=== PATIENT | female | born 1945 | race Caucasian/White ===

== ENCOUNTER → 2016-09-07 | Day surgery (SDC) | payer OTHER, MEDICARE ==
[2016-08-28 14:36] VITALS: BMI 26.0
[~2016-09-07] VITALS: Ht 165.1 cm; Wt 72.7 kg
[~2016-09-07] MED LIST: ASPI325T45 PO; ESZO1TAB16 PO; GABA-112 PO; LEVO100T7 PO; LIDOCAINE HCL 2% 2 ML VIAL (20MG/ML) ONE; MIDAZOLAM HCL 1 MG/ML 2ML VIAL ONE; MULT-506 PO; OMEGA RED PO; ONDANSETRON INJ 2 MG/ML 2 ML VIAL ONE; PROBCAP PO; PROPOFOL IV EMULSION 10 MG/ML 20 ML VIAL IV ONE; SENNTAB23 PO; SODIUM CHLORIDE 0.9% 500ML 500 ML IV ONE
--- NOTE | 2016-09-07 08:56 | Endo History and Physical ---
History & Physical Date of Service: Sep 07, 2016. Chief Complaint: Screening Referring Physician: Kris Ugarte History of Present Illness 71 yo CF who presents for screening colonoscopy. Past Medical History Thyroid Disease Past Surgical History Hx Cardiac Surgery: No Hx Internal Defibrillator: No Hx Pacemaker: No Hx Abdominal Surgery: Yes (UTERINE BIOPSY (BENIGN), D&C, UTERINE SUSPENSION) Hx of Implantable Prosthesis: No Hx Post-Op Nausea and Vomiting: No Hx Cancer Surgery: No Hx Thoracic Surgery: No Hx Orthopedic: Yes (BACK, HIP, AND SHOULDER INJECTIONS, LT KNEE BONE GRAFT) Hx Urinary Tract Surgery: No Family History None Social History Smoking Status: Former Smoker Hx Substance Use: No Hx Alcohol Use: No Allergies Coded Allergies: Adhesives (Verified Allergy, Unknown, SKIN TEARS, 08/28/16) Prednisone (Unverified Allergy, Unknown, DELIRIUM, 08/28/16) [place] (Verified Allergy, Unknown, HIVES, 08/28/16) Current Medications Reported Home Medications Medications Dose Route/Sig Max Daily Dose Days Date Category Multivitamin (Multivitamins) Tab 1 Tab PO QAM 08/28/16 Reported Stool Softener (Sennosides-Docusate Sodium) 1 Tab Tab 1 Tab PO QAM 08/28/16 Reported X-IO (Probiotic Product) 1 Cap Cap 1 Tab PO QAM 08/28/16 Reported [[place] Red] 1 Tab PO QAM 08/28/16 Reported Levothyroxine Sodium 100 Mcg Tab 1 Tab PO QAM 08/28/16 Reported Lunesta (Eszopiclone) 3 Mg Tab 3 Mg PO HS 07/14/15 Reported Aspirin 325 Mg Tab 325 Mg PO QAM 07/14/15 Reported Neurontin (Gabapentin) 100 Mg Cap 2 Tabs PO BID 07/14/15 Reported Vital Signs Weight (Kilograms): 72.73 Height (Feet): 5 Height (Inches): 5 Physical Exam General Appearance: WD/WN, no apparent distress Respiratory/Chest: Auscultation: breath sounds normal Cardiovascular: Heart Auscultation: RRR Abdomen: Bowel Sounds: normal Inspection & Palpation: soft, non-distended, no tenderness, guarding & rebound Assessment and Plan Assessment: 71 yo CF who presents for screening colonoscopy. Plan: Proceed with colonoscopy.
[2016-09-07 08:57] VITALS: Ht 165.1 cm; Wt 72.7 kg
--- NOTE | 2016-09-07 10:22 | Discharge Instructions ---
Endoscopy Patient Instructions Date / Procedure(s) Performed Sep 07, 2016. Colonoscopy Allergy Information Coded Allergies: Adhesives (Verified Allergy, Unknown, SKIN TEARS, 08/28/16) Prednisone (Verified Allergy, Unknown, DELIRIUM, 09/07/16) [place] (Verified Allergy, Unknown, HIVES, 08/28/16) Discharge Date / Findings Sep 07, 2016. Colon polyp Internal hemorrhoids Medication Instructions OK to resume all medications today as prescribed. Reported Home Medications Medications Dose Route/Sig Max Daily Dose Days Date Category Multivitamin (Multivitamins) Tab 1 Tab PO QAM 08/28/16 Reported Stool Softener (Sennosides-Docusate Sodium) 1 Tab Tab 1 Tab PO QAM 08/28/16 Reported Nginx (Probiotic Product) 1 Cap Cap 1 Tab PO QAM 08/28/16 Reported [[place] Red] 1 Tab PO QAM 08/28/16 Reported Levothyroxine Sodium 100 Mcg Tab 1 Tab PO QAM 08/28/16 Reported Lunesta (Eszopiclone) 3 Mg Tab 3 Mg PO HS 07/14/15 Reported Aspirin 325 Mg Tab 325 Mg PO QAM 07/14/15 Reported Neurontin (Gabapentin) 100 Mg Cap 2 Tabs PO BID 07/14/15 Reported Provider Instructions Activity Restrictions - No exercising or heavy lifting for 24 hours. - Do not drink alcohol the day of the procedure. - Do not drive a car or operate machinery until the day after the procedure. - Do not make any important decisions or sign important papers in 24 hours after the procedure. Following Day: - Return to full activity which may include returning to work/school. Diet Start your diet with liquids and light foods (jello, soup, juice, toast). Then eat your usual diet if not nauseated. Treatment For Common After Affects For mild abdominal pain, bloating, or excessive gas: - Rest - Eat lightly - Lie on right side Follow-Up Information Follow-up with DR. MONSTER PEACOCK as scheduled Anesthesia Information What You Should Know You have had a procedure that required some medicine to reduce anxiety and discomfort. This treatment is called moderate sedation. After receiving the treatment, you may be sleepy, but you will be able to breathe on your own. The effects of the treatment may last for several hours. Follow these instructions along with Activity/Diet recommendations noted above: * Do NOT do anything where dizziness or clumsiness would be dangerous. * Rest quietly at home today, then you can be up and about tomorrow. * Have a responsible person stay with you the rest of today. * You may have had an I.V. today. If so, you may take the dressing off later today. Recommendations Call your doctor if: * Trouble breathing * Continuous vomiting for more than 24 hours * Temperature above 101 degrees * Severe abdominal pain or bloating * Pain not relieved by pain medicine ordered * There is increased drainage or redness from any incision * A large amount of rectal bleeding greater than 2-3 tablespoons. (If you had a polyp/s removed or have hemorrhoids, a small amount of blood - from the rectum is to be expected.) * You have any unanswered questions or concerns. IN THE EVENT OF A SERIOUS EMERGENCY, GO TO THE NEAREST EMERGENCY ROOM Your discharge instructions were prepared by provider Spencer Cazares. Patient Instructions Signature Page Janet Tobar Patient (or Guardian) Signature/Date: I have read and understand the instructions given to me by my caregivers. Caregiver/RN/Doctor Signature/Date: The above-named patient and/or guardian has received patient instructions on this date. + Original Patient Signature Page (only) stays with chart. Please make copy for patient.
--- NOTE | 2016-09-07 10:28 | GI REPORT ---
Procedure Date: 09/07/2016 9:48 AM Procedure: Colonoscopy Indications: Screening for colorectal malignant neoplasm Medicines: Monitored Anesthesia Care Complications: No immediate complications. Estimated Blood Loss: Estimated blood loss: none. Procedure: Pre-Anesthesia Assessment: - Prior to the procedure, a History and Physical was performed, and patient medications and allergies were reviewed. The patient's tolerance of previous anesthesia was also reviewed. The risks and benefits of the procedure and the sedation options and risks were discussed with the patient. All questions were answered, and informed consent was obtained. Prior Anticoagulants: The patient has taken no previous anticoagulant or antiplatelet agents. ASA Grade Assessment: II - A patient with mild systemic disease. After reviewing the risks and benefits, the patient was deemed in satisfactory condition to undergo the procedure. After I obtained informed consent, the scope was passed under direct vision. Throughout the procedure, the patient's blood pressure, pulse, and oxygen saturations were monitored continuously. The On-site loaner was introduced through the anus and advanced to the terminal ileum. The colonoscopy was performed without difficulty. The patient tolerated the procedure well. The quality of the bowel preparation was good. The terminal ileum, ileocecal valve, appendiceal orifice, and rectum were photographed. Findings: A 4 mm polyp was found in the ascending colon. The polyp was sessile. The polyp was removed with a cold snare. Resection and retrieval were complete. Non-bleeding internal hemorrhoids were found during retroflexion. The hemorrhoids were small. Impression: - One 4 mm polyp in the ascending colon, removed with a cold snare. Resected and retrieved. - Non-bleeding internal hemorrhoids. Recommendation: - Resume previous diet. - Continue present medications. - Repeat colonoscopy for surveillance based on pathology results. - Return to primary care physician as previously scheduled. Spencer Cazares DO 09/07/2016 10:27:59 AM This report has been signed electronically. Note Initiated On: 09/07/2016 9:48 AM I attest to the content of the Intraoperative Record and orders documented therein, exceptions below
[2016-09-07 10:42] VITALS: BP 130/61; PULSE 98; O2SAT 97
--- NOTE | 2016-09-07 10:42 | Anesthesiology Progress Note ---
Anesthesia Post Op Note Date & Time Sep 07, 2016 at 10:42 Vital Signs Pain Intensity: 0 Vital Signs Past 12 Hours Date Time Temp Pulse Resp B/P Pulse Ox O2 Delivery O2 Flow Rate FiO2 09/07/16 10:26 77 16 155/68 99 Room Air 09/07/16 10:11 77 16 111/53 99 Room Air 09/07/16 09:08 36.4 77 20 138/59 99 Room Air Notes Mental Status: alert / awake / arousable, participated in evaluation Pt Amnestic to Procedure: Yes Nausea / Vomiting: adequately controlled Pain: adequately controlled Airway Patency, RR, SpO2: stable & adequate BP & HR: stable & adequate Hydration State: stable & adequate Anesthetic Complications: no major complications apparent
== END | disposition home or self-care (01) ==
LOC: C.GI 08:36
PROVIDERS: ATTEND Internal Medicine
DX: Z12.11 Encounter for screening for malignant neoplasm of colon (principal); D12.2 Benign neoplasm of ascending colon; K64.8 Other hemorrhoids; M19.90 Unspecified osteoarthritis, unspecified site; Z98.890 Other specified postprocedural states; Z87.891 Personal history of nicotine dependence; Z91.018 Allergy to other foods; Z68.26 Body mass index [BMI] 26.0-26.9, adult

== ENCOUNTER → 2016-11-07 | Outpatient (CLI) | payer OTHER, MEDICARE ==
[~2016-11-07] MED LIST changes: -LIDOCAINE HCL 2% 2 ML VIAL (20MG/ML) ONE; -MIDAZOLAM HCL 1 MG/ML 2ML VIAL ONE; -ONDANSETRON INJ 2 MG/ML 2 ML VIAL ONE; -PROPOFOL IV EMULSION 10 MG/ML 20 ML VIAL IV ONE; -SODIUM CHLORIDE 0.9% 500ML 500 ML IV ONE
[2016-11-07 11:20] LABS: ESTIMATED AVERAGE GLUCOSE 128 mg/dl; HA1C FLAG Normal (Normal)
[2016-11-07 11:25] LABS: ALT/SGPT 19 U/L (12-78); AST/SGOT 9 U/L (15-37); BLOOD UREA NITROGEN 15 mg/dl (7-18); BUN/CREATININE RATIO 14.9 (10-20); CALCIUM 9.4 mg/dl (8.5-10.1); CARBON DIOXIDE 30 mmol/L (21-32); CHLORIDE 105 mmol/L (98-107); GLUCOSE 113 mg/dl (70-99); SODIUM 142 mmol/L (136-145)
[2016-11-07 11:37] LABS: ALB/GLOB RATIO 1.1 (0.9-2); ALKALINE PHOSPHATASE 52 U/L (45-117); THYROID STIMULATING HORMONE 0.267 uIu/ml (0.300-4.500)
--- NOTE | 2016-11-14 12:11 | CODING QUERY MEDICAL NECESSITY ---
CQSUPPORTING DIAGNOSIS NEEDED A supporting diagnosis is required for the test/procedure performed on this patient in order for us to be reimbursed by the patient's insurance. Please provide a supporting diagnosis for the following test/procedure listed below next to the test name along with your signature. *If there is no additional diagnosis for this patient that would support the following test/procedure please document that below next to the test/procedure. Test(s)/Procedure(s) that require a supporting diagnosis: DOS 11/07/16 GLYCATED HEMOGLOBIN Provider Signature: Date: Thank you Diana Bender [employer] Once completed, please kindly fax back to [phone] For questions please call [phone]
== END | disposition home or self-care (01) ==
LOC: C.LABBC 08:00
PROVIDERS: ATTEND Family Medicine
DX: Z11.59 Encounter for screening for other viral diseases (principal); R73.03 Prediabetes; E03.9 Hypothyroidism, unspecified

== ENCOUNTER → 2016-11-12 | Outpatient (CLI) | payer OTHER, MEDICARE ==
--- NOTE | 2016-11-12 16:17 | DIAGNOSTIC IMAGING REPORT ---
LEFT SHOULDER MRI HISTORY: M25.512 Left shoulder pain TECHNIQUE: Multiplanar multisequence MRI of the left shoulder was performed without contrast. COMPARISON STUDY: None. FINDINGS: AC joint: Mild AC joint arthropathy demonstrated by joint space narrowing and a small amount of joint fluid. Rotator cuff: The subscapularis and teres minor tendons are intact. High-grade bursal surface tear involving the distal supraspinatus tendon. There is also a linear full-thickness tear involving the posterior fibers of the infraspinatus tendon. This measures 3 mm in thickness and is seen along the length of the infraspinatus tendon. There is also small partial tears along the undersurface of the infraspinatus tendon. Trace fluid within the subacromial/subdeltoid bursa. Mild fatty atrophy of the supraspinatus and infraspinatus muscles. No associated retraction. Labrum: Truncated appearance to the majority of the labrum consistent with circumferential degeneration/tear. Biceps tendon: Intact Bones: No fracture or dislocation. Cartilage: Less than 50% cartilage thinning within the glenoid and superior humeral head. Miscellaneous: No significant joint effusion. IMPRESSION: 1. Linear focal full-thickness tear within the infraspinatus tendon measuring 3 mm in thickness. There also partial tears within the remaining infraspinatus and supraspinatus tendons. 2. Mild biceps tendinopathy. 3. 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 4. Truncated appearance to the majority of the labrum consistent with circumferential degeneration/tear. Electronically signed by: Pan Dasilva M.D. 11/12/2016 4:15 PM Dictated Date/Time: 11/12/2016 4:03 PM
== END | disposition home or self-care (01) ==
LOC: C.MRI 13:48
PROVIDERS: ATTEND Family Medicine
DX: M75.102 Unspecified rotator cuff tear or rupture of left shoulder, not specified as traumatic (principal)

== ENCOUNTER → 2016-11-24 | Outpatient (CLI) | payer OTHER, MEDICARE | END | disposition home or self-care (01) | LOC: C.CPL 08:29 | PROVIDERS: ATTEND Internal Medicine Nephrology | DX: M75.112 Incomplete rotator cuff tear or rupture of left shoulder, not specified as traumatic (principal) ==

== ENCOUNTER → 2016-12-10 | Outpatient (CLI) | payer OTHER, MEDICARE | END | disposition home or self-care (01) | LOC: C.LABBC 11:19 | PROVIDERS: ATTEND Family Medicine | DX: E03.9 Hypothyroidism, unspecified (principal) ==

== ENCOUNTER → 2017-02-01 | Outpatient (CLI) | payer OTHER, MEDICARE ==
[2017-02-01 11:12] LABS: THYROID STIMULATING HORMONE 12.5 uIu/ml (0.300-4.500)
== END | disposition home or self-care (01) ==
LOC: C.LABBC 08:54
PROVIDERS: ATTEND Physician Assistant Medical
DX: E03.9 Hypothyroidism, unspecified (principal)

== ENCOUNTER → 2017-03-27 | Outpatient (CLI) | payer OTHER, MEDICARE ==
[2017-03-27 14:09] LABS: ESTIMATED AVERAGE GLUCOSE 137 mg/dl; HA1C FLAG Normal (Normal)
[2017-03-27 14:52] LABS: THYROID STIMULATING HORMONE 7.29 uIu/ml (0.300-4.500)
--- NOTE | 2017-04-05 10:40 | CODING QUERY NO DIAGNOSIS ---
TREATMENT RENDERED WITHOUT A DIAGNOSIS : 1945 To promote full compliance with coding requirements relating to patient care, physician participation is requested in all cases of import export clerk uncertainty. Please assist us with providing a diagnosis/symptom for the test(s) below: A diagnosis/symptom was not documented on your Order. A valid diagnosis/symptom is required to bill all insurances. Please remember that we are unable to code a diagnosis of rule out, probable, possible, questionable, or suspected. Tests that require a diagnosis: DOS: 03/27/17 * HEMOGLOBIN A1C DIAGNOSIS: * T3 FREE DIAGNOSIS: * T4 FREE DIAGNOSIS: * THYROID STIMULATING DIAGNOSIS: Provider Signature: Date: Thank you Colette Belcher Health Information Management Once completed, please kindly fax back to [phone] For questions please call [phone]
== END | disposition home or self-care (01) ==
LOC: C.LABBC 09:35
PROVIDERS: ATTEND Physician Assistant
DX: R73.03 Prediabetes (principal); E03.9 Hypothyroidism, unspecified

== ENCOUNTER → 2017-08-16 | Outpatient (CLI) | payer OTHER, MEDICARE ==
[2017-08-16 11:17] LABS: ALBUMIN 3.8 gm/dl (3.4-5.0); ALT/SGPT 18 U/L (12-78); AST/SGOT 10 U/L (15-37); BLOOD UREA NITROGEN 15 mg/dl (7-18); CALCIUM 9.5 mg/dl (8.5-10.1); CARBON DIOXIDE 29 mmol/L (21-32); CHOLESTEROL 273 mg/dl (0-200); CREATININE 0.95 mg/dl (0.60-1.20); GLUCOSE 104 mg/dl (70-99); SODIUM 140 mmol/L (136-145)
[2017-08-16 11:27] LABS: ALKALINE PHOSPHATASE 50 U/L (45-117); LDL CHOLESTEROL CALCULATED 187 mg/dl; TOTAL PROTEIN 7.6 gm/dl (6.4-8.2)
[2017-08-16 11:29] LABS: HEMOGLOBIN A1C 6.2 % (4.5-5.6)
== END | disposition home or self-care (01) ==
LOC: C.LABBC 08:50
PROVIDERS: ATTEND Nurse Practitioner Adult Health
DX: E78.00 Pure hypercholesterolemia, unspecified (principal); E03.9 Hypothyroidism, unspecified; R73.03 Prediabetes

== ENCOUNTER → 2017-09-30 | Outpatient (CLI) | payer OTHER, MEDICARE ==
--- NOTE | 2017-10-01 15:16 | MAMMOGRAPHY REPORT ---
BILATERAL DIGITAL SCREENING MAMMOGRAM TOMOSYNTHESIS WITH CAD: 09/30/2017 CLINICAL HISTORY: Routine screening. Patient has no complaints. TECHNIQUE: Breast tomosynthesis in addition to standard 2D mammography was performed. Current study was also evaluated with a Computer Aided Detection (CAD) system. COMPARISON: Comparison is made to exams dated: 02/23/2016 mammogram - [facility], 1 08/05/2006, 11/24/2012 mammogram, and 08/02/2001 mammogram - [facility]. BREAST COMPOSITION: There are scattered areas of fibroglandular density in both breasts. FINDINGS: No suspicious mass, architectural distortion or cluster of suspicious microcalcifications is seen. There are a few benign rounded rim calcifications scattered in the breasts. IMPRESSION: ACR BI-RADS CATEGORY 1: NEGATIVE There is no mammographic evidence of malignancy. A 1 year screening mammogram is recommended. The pa tient will receive written notification of the results. Approximately 10% of breast cancers are not detected with mammography. A negative mammographic report should not delay biopsy if a clinically suggestive mass is present. Tierra Ortez M.D. ay/:09/30/2017 15:40:22 Food Clerk: Traci Gallagher, [facility] letter sent: Normal 1/2 BI-RADS Code: ACR BI-RADS Category 1: Negative
== END | disposition home or self-care (01) ==
LOC: C.MAMM 10:34
PROVIDERS: ATTEND Nurse Practitioner Adult Health
DX: Z12.31 Encounter for screening mammogram for malignant neoplasm of breast (principal)

== ENCOUNTER → 2017-11-19 | Outpatient (CLI) | payer OTHER, MEDICARE ==
[~2017-11-19] MED LIST changes: -ASPI325T45 PO; +ASPI81TA28 PO; +ATOR-22 PO; -LEVO100T7 PO; +LEVO88TA PO
[2017-11-19 11:14] LABS: ALT/SGPT 19 U/L (12-78); AST/SGOT 11 U/L (15-37); BLOOD UREA NITROGEN 13 mg/dl (7-18); CALCIUM 9.3 mg/dl (8.5-10.1); CARBON DIOXIDE 29 mmol/L (21-32); CHOLESTEROL 166 mg/dl (0-200); CREATININE 1.04 mg/dl (0.60-1.20); GLUCOSE 103 mg/dl (70-99); POTASSIUM 3.9 mmol/L (3.5-5.1); SODIUM 139 mmol/L (136-145); TOTAL PROTEIN 7.8 gm/dl (6.4-8.2)
[2017-11-19 11:15] LABS: ALKALINE PHOSPHATASE 66 U/L (45-117); LDL CHOLESTEROL CALCULATED 81 mg/dl
== END | disposition home or self-care (01) ==
LOC: C.LABBC 08:58
PROVIDERS: ATTEND Nurse Practitioner Adult Health
DX: E78.00 Pure hypercholesterolemia, unspecified (principal)